=== PATIENT | male | born 1955 | race Caucasian/White ===

== ENCOUNTER 2020-09-30 20:04 | Inpatient (IN) | payer OTHER ==
[~2020-09-30] VITALS: Ht 167.6 cm; Wt 119.3 kg
[~2020-09-30 20:04] MED LIST: ADULT LOW DOSE81 MG PO
[2020-09-30 20:07] VITALS: BP 120/84
[2020-09-30] MEDS ORDERED: COZAAR 25 MG TA25 M1 PO (20:15)
[2020-09-30] MEDS ORDERED: [UNRECOGNIZED DRUG - OTHER] (20:15)
[2020-09-30 20:55] LABS: ABSOLUTE BASOPHILS 0.1 thou/uL (0.0-0.2); ABSOLUTE EOSINOPHILS 0.2 thou/uL (0.0-0.7); ABSOLUTE LYMPHOCYTES 1.4 thou/uL (0.8-5.3); ABSOLUTE MONOCYTES 0.6 thou/uL (0.0-1.2); ABSOLUTE NEUTROPHILS 10.5 thou/uL (1.6-8.1); BASOPHILS 0.5 %; EOSINOPHILS 1.5 %; HEMOGLOBIN 17.3 gm/dL (14.0-18.0); MCH 31.3 pg (26.0-34.0); MCHC 33.9 g/dL (28.0-37.0); MCV 92.3 fL (80.0-100.0); MONOCYTES 4.6 %; MPV 9.7 fl. (7.2-11.1); NUCLEATED RBCS 0 /100WBC; PLATELET COUNT* 174 thou/uL (150-400); POLYS 82.4 %; RBC 5.52 mil/uL (4.50-6.00); RDW-CV 13.8 % (10.5-14.5); WBC 12.7 thou/uL (4.0-11.0)
[2020-09-30 21:00] LABS: BE -3.5 mmol/L (-2 to +3); PCO2 41.5 mmHg (35.0-45.0); PO2 70.1 mmHg (75.0-100.0); pH 7.343 (7.340-7.450)
[2020-09-30 21:05] LABS: CALCIUM 9.9 mg/dL (8.5-10.1); CREATININE 1.6 mg/dL (0.6-1.3); POTASSIUM 4.2 mmol/L (3.5-5.1)
[2020-09-30 21:15] LABS: INR 1.1; PROTIME 11.3 Seconds (9.20-11.50)
[2020-09-30 21:16] LABS: ALBUMIN 4.4 g/dL (3.4-5.0); MAGNESIUM 2.3 mg/dL (1.8-2.4); TOTAL BILIRUBIN 0.4 mg/dL (<0.1-1.0); TOTAL PROTEIN 8.9 g/dL (6.4-8.2)
[2020-09-30 21:51] LABS: URINE BILIRUBIN NEGATIVE (Negative); URINE BLOOD NEGATIVE (Negative); URINE CLARITY CLEAR; URINE COLOR YELLOW; URINE GLUCOSE-RANDOM NEGATIVE (Negative); URINE KETONES NEGATIVE (Negative); URINE LEUKOCYTES-REFLEX NEGATIVE (Negative); URINE NITRITE-REFLEX NEGATIVE (Negative); URINE PROTEIN 2+ (Negative); URINE UROBILINOGEN 0.2 E.U./dl (0.2-1.0)
[2020-09-30 22:08] LABS: CRYSTALS None Seen /LPF (None Seen); HYALINE CASTS >10 Many /LPF (None Seen); MUCUS None Seen strn/LPF (None Seen); SQUAMOUS NONE SEEN /LPF (0-3)
[2020-09-30 22:09] LABS: BACTERIA-REFLEX None Seen /HPF (None Seen); URINE RBC None Seen /HPF (0-2); URINE WBC-REFLEX 0-5 Rare /HPF (0-5)
[2020-10-01] VITALS (22 sets, daily range): BP systolic 81–133; BP diastolic 51–88
--- NOTE | 2020-10-01 06:52 | NUR ---
ASSESSMENTS CHARTED. PATIENT RESTING COMFORTABLY ON BIPAP. APPT SUPERTHERAPEUTIC THIS AM. HELD FOR 1 HOUR AND RESTARTED AT 0645 PER PROTOCOL. NO SIGNIFICANT EVENTS THIS SHIFT
[2020-10-01 08:08] LABS: ABSOLUTE BASOPHILS 0.1 thou/uL (0.0-0.2); ABSOLUTE EOSINOPHILS 0.1 thou/uL (0.0-0.7); ABSOLUTE LYMPHOCYTES 1.4 thou/uL (0.8-5.3); ABSOLUTE MONOCYTES 0.6 thou/uL (0.0-1.2); ABSOLUTE NEUTROPHILS 6.5 thou/uL (1.6-8.1); BASOPHILS 0.8 %; EOSINOPHILS 0.9 %; HEMATOCRIT 44.4 % (42.0-52.0); LYMPHOCYTES 16.1 %; MCH 30.9 pg (26.0-34.0); MCHC 33.8 g/dL (28.0-37.0); MCV 91.3 fL (80.0-100.0); MONOCYTES 6.9 %; MPV 10.8 fl. (7.2-11.1); NUCLEATED RBCS 0 /100WBC; PLATELET COUNT* 153 thou/uL (150-400); POLYS 75.3 %; RBC 4.86 mil/uL (4.50-6.00); WBC 8.6 thou/uL (4.0-11.0)
[2020-10-01 08:27] LABS: CALCIUM 9.2 mg/dL (8.5-10.1); CREATININE 1.2 mg/dL (0.6-1.3); POTASSIUM 4.5 mmol/L (3.5-5.1)
--- NOTE | 2020-10-01 08:56 | NUR ---
Spoke with Dr. Fairchild regarding consult with IR for possible thrombolysis of bilateral PE's. Dr. Fairchild to call Pascale Santoyo NP with his recommendations of IV TPA infusion as protocol for handling this situation
--- NOTE | 2020-10-01 10:40 | EKG ---
[place] [address] ELECTROCARDIOGRAM REPORT Name: AUNG MORLEY Room: [address] IN [facility]#: [id number] Admission: 09/30/20 Attend Phys: Edson Brand, Discharge: Date of : 57 Date of Service: 09/30/202011 Report #: [id number] THIS REPORT FOR: //name// [facility] ED Test Date: 2020-09-30 Test Time: 20:12:40 Pat Name: AUNG MORLEY Department: Room: [facility] Gender: M Calibration Tester: TB : 1955 Requested By: Amy Quinonez Order Number: [id number] MD: Lance Caro Measurements Intervals [place] Rate: 135 P: 23 [place]: 136 QRS: -74 QRSD: 98 T: 75 QT: 287 QTc: 431 Interpretive Statements Sinus tachycardia wandering baseline Probable left atrial enlargement Left anterior fascicular block Abnormal R-wave progression, late transition Borderline ST depression, lateral leads No previous ECG available for comparison Electronically Signed On 10-01-2020 10:40:20 AUTO DAMAGE ADJUSTER by Lance Caro [email or web address] <ELECTRONICALLY SIGNED> By: Lance Caro MD, [facility] 10/01/20 1040 11 11 Lance Caro MD, [facility] /EPI
--- NOTE | 2020-10-01 10:42 | EKG ---
[place] [address] ELECTROCARDIOGRAM REPORT Name: AUNG MORLEY Room: [address] IN [facility]#: [id number] Admission: 09/30/20 Attend Phys: Edson Brand, Discharge: Date of : 57 Date of Service: 09/30/202230 Report #: [id number] THIS REPORT FOR: //name// [facility] ED Test Date: 2020-09-30 Test Time: 22:31:04 Pat Name: AUNG MORLEY Department: Room: [facility] Gender: M [employer] Clerk: ANUJ : 1955 Requested By: Amy Quinonez Order Number: [id number] MD: Lance Caro Measurements Intervals [place] Rate: 129 P: 26 [place]: 146 QRS: -74 QRSD: 99 T: 37 QT: 306 QTc: 449 Interpretive Statements Sinus tachycardia Probable left atrial enlargement Left anterior fascicular block Abnormal R-wave progression, late transition Borderline ST depression, lateral leads Compared to ECG 09/30/2020 20:12:40 No significant changes Electronically Signed On 10-01-2020 10:42:32 TEAM MEMBER by Lance Caro [email or web address] <ELECTRONICALLY SIGNED> By: Lance Caro MD, FACC 10/01/20 1042 30 30 Lance Caro MD, FAC /EPI
--- NOTE | 2020-10-01 14:06 | 2DMMODE ---
[place] [address] 2 D/M-MODE ECHOCARDIOGRAM Name: AUNG MORLEY Room: [address] IN [facility]#: [id number] Admission: 09/30/20 Attend Phys: Edson Brand, Discharge: Date of : 57 Date of Service: 10/01/20 1405 Report #: [id number] THIS REPORT FOR: cc: Mk Emmanuel MD, Anthony MD Liston, Michael J. MD [facility] ~ APPROVED REPORT Study performed: 10/01/2020 10:46:25 EXAM: Comprehensive 2D, Doppler, and color-flow Echocardiogram Patient Location: In-Patient Room #: 002 Status: routine BSA: 2.18 HR: 100 bpm BP: 88/54 mmHg Rhythm: NSR Other Information Study Quality: Good Indications Pulmonary Embolism 2D Dimensions IVSd: 22.72 (7-11mm) LVOT Diam: 22.30 (18-24mm) LVDd: 33.00 mm PWd: 9.77 (7-11mm) Ascending Ao: 34.01 (22-36mm) LVDs: 20.94 (25-40mm) Aortic Root: 35.96 mm Volumes Left Atrial Volume (Systole) LA ESV Index: 15.60 mL/m2 Aortic Valve AoV Peak Hakeem.: 1.26 m/s AO Peak Gr.: 6.34 mmHg LVOT Max P.49 mmHg AO Mean Gr.: 3.95 mmHg LVOT Mean P.16 mmHg LVOT Max V: 1.06 m/s AO V2 VTI: 21.45 cm LVOT Mean V: 0.67 m/s ANA (VTI): 3.27 cm2 LVOT V1 VTI: 17.92 [place] [address] 2 D/M-MODE ECHOCARDIOGRAM Name: AUNG MORLEY Room: [address] IN [facility]#: [id number] Admission: 09/30/20 Attend Phys: Edson Brand, Discharge: Date of : 57 Date of Service: 10/01/20 1405 Report #: [id number] Mitral Valve E/A Ratio: 0.61 MV Decel. Time: 167.83 ms MV E Max Hakeem.: 0.40 m/s MV PHT: 48.67 ms MVA (PHT): 4.52 cm2 TDI E/Lateral E': 3.64 E/Medial E': 4.44 Medial E' Hakeem.: 0.09 m/s Lateral E' Hakeem.: 0.11 m/s Tricuspid Valve RAP Estimate: 10.00 mmHg TR Peak Gr.: 26.77 mmHg RVSP: 36.00 mmHg PA Pressure: 36.00 mmHg Left Ventricle The left ventricle is normal size. There is normal LV segmental wall motion. Moderate concentric left ventricular hypertrophy. Left ventricular systolic function is normal. LVEF is 65-70%. Grade I - abnormal relaxation pattern. Right Ventricle Right ventricle is mild to moderately dilated. The right ventricular systolic function is normal. Atria The left atrium size is normal. Right atrium is moderately dilated. Aortic Valve Mild aortic valve sclerosis. No aortic regurgitation is present. There is no aortic valvular stenosis. Mitral Valve The mitral valve is normal in structure. Mild mitral regurgitation. No evidence of mitral valve stenosis. Tricuspid Valve The tricuspid valve is normal in structure. Mild tricuspid regurgitation. Mild pulmonary hypertension. The RVSP is 35-40 mmHg. Pulmonic Valve The pulmonary valve is normal in structure. [place] [address] 2 D/M-MODE ECHOCARDIOGRAM Name: AUNG MORLEY Room: [address]#: [id number] Admission: 09/30/20 Attend Phys: Edson Brand, Discharge: Date of : 57 Date of Service: 10/01/20 1405 Report #: [id number] valvular regurgitation. Great Vessels The aortic root is normal in size. IVC is dilated and collapses >50% with inspiration. Pericardium There is no pericardial effusion. <Conclusion> The left ventricle is normal size. Moderate concentric left ventricular hypertrophy. Left ventricular systolic function is normal. LVEF is 65-70%. Grade I - abnormal relaxation pattern. Right ventricle is mild to moderately dilated. Right atrium is moderately dilated. Mild mitral regurgitation. Mild tricuspid regurgitation. Mild pulmonary hypertension. The RVSP is 35-40 mmHg. IVC is dilated and collapses >50% with inspiration. <ELECTRONICALLY SIGNED> By: Rodo Otero MD, FACC 10/01/20 1405 1405 1405 Rodo Otero MD, FACC /INF
--- NOTE | 2020-10-01 14:53 | NUR ---
ICU rounds: Pt to have embolectomy today. in room at bedside. Pt normally A&O. Independent. No DME. No hx of HH or SNF. Per Med Assist, Pt's income is too high to qualify for I[employer], Pt continues to work PT.
[2020-10-02] VITALS (15 sets, daily range): BP systolic 104–149; BP diastolic 57–97
[2020-10-02 02:06] LABS: GLYCOHEMOGLOBIN (HGB A1C) 6.1 % (4.8-5.6)
[2020-10-02 04:33] LABS: HEMATOCRIT 37.4 % (42.0-52.0); MCH 31.3 pg (26.0-34.0); MCHC 33.9 g/dL (28.0-37.0); MCV 92.3 fL (80.0-100.0); MPV 9.7 fl. (7.2-11.1); RBC 4.06 mil/uL (4.50-6.00)
[2020-10-02 04:57] LABS: HEMOGLOBIN 12.7 gm/dL (14.0-18.0)
[2020-10-02 05:20] LABS: CALCIUM 8.4 mg/dL (8.5-10.1); MAGNESIUM 2.1 mg/dL (1.8-2.4); POTASSIUM 4.3 mmol/L (3.5-5.1); TOTAL BILIRUBIN 0.7 mg/dL (<0.1-1.0); TOTAL PROTEIN 6.3 g/dL (6.4-8.2)
[2020-10-02 05:48] LABS: BE -1.3 mmol/L (-2 to +3); PCO2 40.5 mmHg (35.0-45.0); pH 7.384 (7.340-7.450)
[2020-10-02 05:50] LABS: PO2 59.2 mmHg (75.0-100.0)
[2020-10-02 09:07] LABS: ABSOLUTE EOSINOPHILS 0.4 thou/uL (0.0-0.7); ABSOLUTE LYMPHOCYTES 1.7 thou/uL (0.8-5.3); ABSOLUTE MONOCYTES 0.7 thou/uL (0.0-1.2); BASOPHILS 0.7 %; EOSINOPHILS 6.2 %; HEMATOCRIT 37.2 % (42.0-52.0); HEMOGLOBIN 12.7 gm/dL (14.0-18.0); LYMPHOCYTES 25.3 %; MCH 31.1 pg (26.0-34.0); MCV 91.6 fL (80.0-100.0); MONOCYTES 9.7 %; MPV 10.3 fl. (7.2-11.1); NUCLEATED RBCS 0 /100WBC; PLATELET COUNT* 111 thou/uL (150-400); POLYS 58.1 %; RBC 4.07 mil/uL (4.50-6.00); RDW-CV 13.9 % (10.5-14.5); WBC 6.9 thou/uL (4.0-11.0)
--- NOTE | 2020-10-02 15:30 | NUR ---
ICU rounds: Tele status. Anticipate weekend dc. Cards to provide blood thinner samples, CM provided Pt with Rx assistance apps for both [employer] and [employer].
[2020-10-03 03:40] LABS: HEMATOCRIT 32.7 % (42.0-52.0); HEMOGLOBIN 11.1 gm/dL (14.0-18.0); MCH 31.5 pg (26.0-34.0); MCHC 34.1 g/dL (28.0-37.0); MCV 92.4 fL (80.0-100.0); MPV 9.7 fl. (7.2-11.1); RBC 3.54 mil/uL (4.50-6.00); RDW-CV 13.7 % (10.5-14.5); WBC 7.7 thou/uL (4.0-11.0)
[2020-10-03 03:53] LABS: APTT 78.6 Seconds (25.0-31.3); INR 1.1; PROTIME 11.7 Seconds (9.20-11.50)
[2020-10-03 04:14] VITALS: BP 125/75
--- NOTE | 2020-10-03 04:33 | NUR ---
ASSUMED CARE AT 1900H, ON RA AND TOLERATED. ON HEPARIN DRIP AT FIXED DOSE. NO BLEEDING NOTED. POPLITEAL DRESSING DRY AND INTACT. PT HAD SLEEP APNEA, NC AT 2LPM APPLIED. PT WAS HOPING HE CAN GO HOME TODAY. CONTINUE MONITORING AND TOWARDS GOALS.
[2020-10-03 05:10] LABS: ALBUMIN 2.9 g/dL (3.4-5.0); CALCIUM 8.3 mg/dL (8.5-10.1); CREATININE 0.9 mg/dL (0.6-1.3); POTASSIUM 4.2 mmol/L (3.5-5.1); TOTAL BILIRUBIN 0.4 mg/dL (<0.1-1.0); TOTAL PROTEIN 6.1 g/dL (6.4-8.2)
[2020-10-03] MEDS ORDERED: ELIQUIS5 MG PO (08:22)
[2020-10-03 10:55] VITALS: BP 125/75
--- NOTE | 2020-10-03 11:38 | NUR ---
PATIENT RECEIVED DISCHARGE ORDERS. EDUCATION PROVDIED ABOUT [employer], PATIENT SENT WITH SAMPLES AND DISCOUNT CARD. PATIENT AT THE BEDSIDE AT THAT TIME. BOTH VERBALIZED UNDERSTANDING. PERSONAL BELONGINGS PACKED AND SENT WITH PATIENT. PATIENT LEFT UNIT AT 1137 WITH IN WHEELCHAIR.
--- NOTE | 2020-10-05 18:29 | CON ---
[address] [address] CONSULTATION Name: AUNG MORLEY Room: [address] IN ..#: [id number] Admission: 09/30/20 Attend Phys: Edson Brand MD Discharge: 10/03/20 Date of : 57 Report #: [id number] THIS REPORT FOR: cc: Mk Emmanuel MD, Anthony MD ~ Jan Ricks MD DATE OF SERVICE: 10/01/2020 Consult has been requested by Dr. Brand. INDICATION FOR CONSULTATION: Acute hypoxemic respiratory failure secondary to massive pulmonary emboli. HISTORY OF PRESENT ILLNESS: A 65-year-old gentleman with past medical history includes a single episode of DVT in the past, which occurred after he had surgery. I have suspicion that he has a previously undiagnosed obstructive sleep apnea. Otherwise, he does not have a history of cardiac or respiratory disease. He does have a history of hypertension. The patient is now admitted with sudden increase in shortness of breath. He has had recent pain in the right as well as the left leg. He has some swelling of lower extremities as well. He does not have much of a cough. There is no sputum production. He had minor clear nasal discharge. He currently is not complaining of chest pain. He answers to the negative for all questions for review of systems I asked him 12 questions including no other respiratory complaints. The patient, however, is hypoxemic. Currently, he is on 15 liters of oxygen due to shortness of breath. He did require to be on BiPAP last night. He currently is in fact saturating 97% though and his O2 saturations are coming up. He has been on anticoagulation. He also does have TPA running right now, which was ordered by the IR service and I understand that they are planning on a clot removal today. The patient does report improvement in shortness of breath since he was admitted here overnight. PAST MEDICAL HISTORY: DVT after having a surgery for which he did take anticoagulation for a while, hemoglobinopathies, has a history of therapeutic phlebotomy in the past, left knee arthroscopy, hypertension. SOCIAL HISTORY: No known history of smoking, ethanol abuse or drug abuse. CURRENT MEDICATIONS: List in [employer] reviewed. HOME MEDICATIONS: The list also in [employer] reviewed. FAMILY HISTORY: There is no known pertinent family [place] [address] CONSULTATION Name: AUNG MORLEY Room: [address]#: [id number] Admission: 09/30/20 Attend Phys: Edson Brand MD Discharge: 10/03/20 Date of : 57 Report #: [id number] PHYSICAL EXAMINATION: GENERAL: He is alert, awake and oriented. VITAL SIGNS: Has a pulse of 100 and a blood pressure of 88/54. He is, however, saturating 97%. He is on 15 liters oxygen via nasal cannula at the time of my evaluation, his respiratory rate was around 20. He is afebrile with a temperature of 36.0. Body mass index is elevated to 40. HEENT: Head is normocephalic and atraumatic. Pupils are equal and reactive. There is no throat erythema, narrow airway around Mallampati 4. NECK: Does not show raised JVP, asymmetry, mass or lymph nodes. CHEST: Symmetrical expansion on inspection and palpation. On auscultation, chest is clear. HEART: Regular. There is no murmur. ABDOMEN: Soft and nontender. EXTREMITIES: He does have 1+ edema and calf tenderness bilaterally. SKIN: Dry and intact. NEUROLOGICAL: Moves all extremities bilaterally equally and spontaneously with no focal deficit identified. LABORATORY DATA: The patient's lab work is in [employer] and this is reviewed. The CTA chest films as well as report are also in [employer] reviewed; both renal ultrasound report reviewed; venous Dopplers, which are positive for DVT bilaterally in [facility] reviewed. ASSESSMENT AND PLAN: 1. Acute hypoxemic respiratory failure secondary to massive acute pulmonary emboli. Recommend titrating oxygen as tolerated. He does appear to have underlying obstructive sleep apnea. Therefore, for now, I would recommend keeping him on a BiPAP while asleep. 2. Massive spontaneous bilateral pulmonary emboli with bilateral deep venous thrombosis and a history of hemoglobinopathies. I would go ahead and consult the Hematology service for a hypercoagulability workup if indicated. I would favor lifelong anticoagulation unless a strong contraindications develop. I am awaiting the final echo report, but per the preliminary report I am told that there is a significant right heart strain on the echo. 3. Hypotension with a past history of hypertension, agree with IV fluids as currently ordered. We will follow. So far, he has not required pressors. 4. Pulmonary infiltrate. I do see some air bronchograms at the right lung base, which was consistent with an infiltrate; however, the patient does not have any history consistent with an infection. His history is more consistent with pulmonary emboli; therefore, it is more likely that this finding is secondary to pulmonary infarction secondary to pulmonary embolism than pneumonia; therefore, I decided to hold off on antibiotics for now. We will follow closely. In case he declines or fails to improve, I may consider [address] [place] [address] CONSULTATION Name: AUNG MORLEY Room: [address]#: [id number] Admission: 09/30/20 Attend Phys: Edson Brand MD Discharge: 10/03/20 Date of : 57 Report #: [id number] covering him. 5. Obesity/narrow airway. I suspect he has underlying obstructive sleep apnea. In addition to keep him on BiPAP while asleep for now, I recommend that he has an outpatient sleep study after recovery from current illness. The patient is critically ill at this time. Total time spent providing critical care to this patient today is 36 minutes. <ELECTRONICALLY SIGNED> By: Jan Ricks MD 10/05/20 1829 1226 [id number] Ricks MD /nt
== END 2020-10-03 11:37 | disposition home or self-care (01) | DRG 270 ==
LOC: M.ERS 20:04 → M.TBA-ER 23:40 → M.ICU 10-01 01:08
PROVIDERS: Emergency Medicine; Internal Medicine; ADMIT Internal Medicine; ATTEND Internal Medicine
PROC: 5A0935A Assistance with Respiratory Ventilation, Less than 24 Consecutive Hours, High Flow/Velocity Cannula (ICD-10-PCS; principal; 2020-10-01)
PROC: 02CR3ZZ Extirpation of Matter from Left Pulmonary Artery, Percutaneous Approach (ICD-10-PCS; principal; 2020-10-01)
PROC: 5A09357 Assistance with Respiratory Ventilation, Less than 24 Consecutive Hours, Continuous Positive Airway Pressure (ICD-10-PCS; principal; 2020-10-01)
PROC: 02CQ3ZZ Extirpation of Matter from Right Pulmonary Artery, Percutaneous Approach (ICD-10-PCS; principal; 2020-10-01)
PROC: 5A09357 Assistance with Respiratory Ventilation, Less than 24 Consecutive Hours, Continuous Positive Airway Pressure (ICD-10-PCS; 2020-10-02)
PROC: 06CM3ZZ Extirpation of Matter from Right Femoral Vein, Percutaneous Approach (ICD-10-PCS; 2020-10-02)
PROC: 5A0935A Assistance with Respiratory Ventilation, Less than 24 Consecutive Hours, High Flow/Velocity Cannula (ICD-10-PCS; 2020-10-02)
DX: I82.413 Acute embolism and thrombosis of femoral vein, bilateral (principal); I26.09 Other pulmonary embolism with acute cor pulmonale; J96.01 Acute respiratory failure with hypoxia; I21.A1 Myocardial infarction type 2; I95.9 Hypotension, unspecified; N28.9 Disorder of kidney and ureter, unspecified; D72.829 Elevated white blood cell count, unspecified; R73.9 Hyperglycemia, unspecified; I50.9 Heart failure, unspecified; I11.0 Hypertensive heart disease with heart failure; Z20.822 Contact with and (suspected) exposure to COVID-19; Z86.718 Personal history of other venous thrombosis and embolism; Z79.899 Other long term (current) drug therapy

== ENCOUNTER → 2020-12-21 | Outpatient (CLI) | payer OTHER ==
[~2020-12-21] MED LIST changes: +COZAAR 25 MG TA25 M1 PO; +ELIQUIS5 MG PO; +[UNRECOGNIZED DRUG - OTHER]
== END ==
LOC: M.ULTRA 10-06 10:55
PROVIDERS: ATTEND Radiology Diagnostic Radiology
DX: I82.412 Acute embolism and thrombosis of left femoral vein (principal)